=== PATIENT | male | born 1965 | race Caucasian/White ===

== ENCOUNTER 2016-10-24 06:47 | Day surgery (SDC) | payer BC ==
[2016-10-17 08:14] LABS: BASOPHILS 0.2 %; BASOPHILS ABSOLUTE 0.02 10/3/uL (0.0-0.16); EOSINOPHILS 4.3 %; EOSINOPHILS ABSOLUTE 0.41 10/3/uL (0.0-0.53); HEMATOCRIT 45.9 % (40.0-51.0); HEMOGLOBIN 15.9 g/dL (13.6-17.8); IMMATURE GRANULOCYTES 0.2 %; IMMATURE GRANULOCYTES ABSOLUTE 0.02 10/3/uL (0.0-0.11); LYMPHOCYTES 35.7 %; LYMPHOCYTES ABSOLUTE 3.37 10/3/uL (0.67-4.30); MEAN CORPUS HGB CONC 34.6 g/dL (32.0-36.0); MEAN CORPUSCULAR HEMOGLOB 33.1 pg (26.0-34.0); MEAN CORPUSCULAR VOLUME 95.4 fL (80-100); MEAN PLATELET VOLUME 10.2 fL (9.2-13.0); MONOCYTES 7.1 %; MONOCYTES ABSOLUTE 0.67 10/3/uL (0.21-1.20); NEUTROPHILS 52.5 %; NEUTROPHILS ABSOLUTE 4.94 10/3/uL (2.02-8.40); PLATELET COUNT 273 10/3/uL (150-400); RBC DISTRIBUTION WIDTH 13.2 % (12.0-16.0); RED CELL COUNT 4.81 10/6/uL (4.7-6.1); WHITE BLOOD CELLS 9.4 10/3/uL (4.5-10.5)
[2016-10-17 08:18] LABS: MANUAL DIFF NO %
[2016-10-17 08:22] LABS: PARTIAL THROMBO TIME 29.7 SEC (22.5-37.2)
[2016-10-17 08:30] LABS: BUN (BLOOD UREA NITROGEN) 18 MG/DL (6-23); CHLORIDE, SERUM 107 MMOL/L (96-112); CO2 (CARBON DIOXIDE) 27 MMOL/L (24-34); CREATININE 0.82 MG/DL (0.70-1.30); GFR AFRICAN AMERICAN 119 ML/MIN (>=60); GFR NON AFRICAN AMERICAN 102 ML/MIN (>=60); GLUCOSE, SERUM 116 MG/DL (60-99); POTASSIUM, SERUM 4.1 MMOL/L (3.5-5.3); SODIUM, SERUM 143 MMOL/L (135-148)
--- NOTE | ~2016-10-24 | OP ---
Record Of Operation [facility] [address] [place]. [address] NAME: LOUISA TRONCOSO : 65 STATUS : [facility]#: [id number] AGE: 51 ADM/REG DATE : 10/24/16 MR#: [id number] REPORT SERV DATE: 10/25/16 DICTATED BY: MELINDA MADERA DATE: 10/25/16 REPORT STATUS : Draft TRANSCRIBED BY: JUNOIR DATE: 10/25/16 DATE OF PROCEDURE: 10/24/2016 PREOPERATIVE DIAGNOSIS: Bilateral cholesteatoma. POSTOPERATIVE DIAGNOSIS: Bilateral cholesteatoma. OPERATIVE PROCEDURE PERFORMED: 1. Right tympanoplasty and mastoidectomy with ossicular chain reconstruction. 2. Right facial nerve monitoring. INDICATIONS AND SIGNIFICANT HISTORY: The patient is a 51-year-old male with a chronic middle ear problems. He presented to the office and was found to have a large bilateral cholesteatoma. Imaging was ordered and demonstrated significant disease. He was noted to have what appeared to be tegmen defects bilaterally, but has no known CSF otorrhea. He has very little useful hearing in his right ear and was felt to benefit from the right ear surgery first. OPERATIVE PROCEDURE AND FINDINGS: After an informed consent was obtained, the patient was brought to the operating room and placed on the operating table in a supine position, at which point, general endotracheal anesthesia was induced by Anesthesia Service and the right facial nerve monitor was set up to monitor orbicularis auris and orbicularis oculi muscles throughout the course of the case. Attention was turned toward the right ear, which was prepped and draped in a standard sterile fashion. I injected with approximately 4 mL of 2% lidocaine and 1:100,000 epinephrine. A lateral canal incision was made approximately 5 mm off the surface from the posterior rim of the bony anulus. This was made with a series of Holloway blades and then reverse elevated. Attention was then turned toward the postauricular region, where the postauricular incision was made along the natural skin crease and the pinna was reflected anteriorly. The temporalis muscle was identified and the fascia overlying the superficial temporal fascia was harvested, approximately a 3 x 2 cm segment. A second segment of fascia was also collected and dried. Attention was then turned toward the elevation of periosteum. A T-shaped incision was made at the inferior border of the temporalis muscle and the posterior limb in a vertical border and paralleling the skin incision was carried to the mastoid tip. A combination of periosteal elevators was utilized to elevate the canal skin and soft tissues anteriorly and then a piece of gauze was passed into the external auditory canal through the postauricular incision and used to hold the whole complex anteriorly. This was held in place with a Weitlaner retractor. This gave excellent exposure of the cribriform area of the spine of Henle, the external auditory canal, the posterior canal retraction pocket, and visible cholesteatoma. Initially, a cortical mastoidectomy was attempted with a canal wall up approach; however, the mastoid was very poorly aerated given his significant chronic mastoid disease and inside-out type approach was utilized. The anulus of the posterior edge of the tympanic membrane including the fibrous anulus was elevated from approximately the 2 o'clock position around to the 6 o'clock position posteriorly. The tympanomeatal flap was then elevated anteriorly and held into place with Gelfoam. The chorda tympani nerve was identified, however, was not preserved given the extent of cholesteatoma around this and the tympanic membrane was Record Of Operation [facility] [address] [place]. [address] NAME: LOUISA TRONCOSO : 65 STATUS : [facility]#: [id number] AGE: 51 ADM/REG DATE : 10/24/16 MR#: [id number] REPORT SERV DATE: 10/25/16 DICTATED BY: MELINDA MADERA DATE: 10/25/16 REPORT STATUS : Draft TRANSCRIBED BY: JUNIOR DATE: 10/25/16 elevated off the surface of the malleus as well during the course of dissection. A large attic retraction pocket was not probed initially given his tegmen defect. However, utilizing 3 mm, 4 mm, and 6 mm burs, as well as the 2 mm bur, all cutting burs, canal wall down mastoidectomy was performed with dissection of the aditus. The horizontal semicircular canal was noted to be intact; however, the ossicular chain was not intact. There was a heavy erosion of the incus, as well as a large portion of the stapes returned to this in just a moment. Cholesteatoma was dissected out from the mastoid, dissected out from the middle ear space, and out from the facial recess. I also dissected from the hypotympanum. Cholesteatoma was noted to extend densely into the round window niche and then was also present all around the stapes. Again, the stapes was eroded; however during the course of removal of cholesteatoma, the stapes footplate was avulsed and all suctioning was ceased immediately and temporalis fascial graft was trimmed to fit over the oval window. The bony stapes footplate was then replaced over this temporalis fascial graft. At this point, cholesteatoma had been dissected from the facial recess and then dissected from the hypotympanum from the tympanic cavity proper. His attic had been already dissected, but great care was turned toward the tegmen region. The eroded head of the incus was removed from the malleus by the joint connecting the two and the malleus was left in place. Cautious dissection was performed with a duckbill elevator and there was approximately a 12 x 5 mm defect in the attic of the tegmen. No visible CSF leak was present and an additional piece of temporalis fascia was placed over this to provide additional support. This provided adequate clearance of cholesteatoma and bolstering of tegmen defect, repair of avulsion of the stapes footplate from the oval window, and clearance of the middle ear. Next, attention was turned toward placement of the graft. The superficial temporalis fascial graft was placed lateral to the malleus and was placed lateral to the bony canal anulus up and over fairly high facial ridge, and a small mastoid cavity and then the tympanic membrane remnants were then replaced on top of this graft. Before the graft had been placed using trimmed or carved head of the incus placed between the stapes and malleus, interposition of graft had been performed. This was performed to improve ossicular continuity. The middle ear was partially bolstered with Floxin-soaked Gelfoam followed by placement of Floxin-soaked Gelfoam into the external auditory canal, replacement of lateral skin flap of the canal, and then finally closure of the postauricular wound. Mastoid dressing was applied. The patient was turned back toward anesthesia, aroused from anesthesia, and taken to the postanesthesia care unit in satisfactory condition. COMPLICATIONS: Avulsion of the stapes footplate from dissection of cholesteatoma with immediate repair using temporalis fascia and ossicular chain reconstruction. FINDINGS: Largely eroded ossicular chain tegmen defect approximately 12 x 5 mm, but no invasive cholesteatoma in this area and also extensive cholesteatoma in a poorly-pneumatized mastoid. Facial nerve was noted to be stimulable throughout the course of the case and was not eroded as it crossed superior to the oval window nor was it traumatically exposed in the vertical segment of the mastoid. DLA/MODL Record Of [address] [address] NAME: LOUISA TRONCOSO : 65 STATUS : [facility] PAT#: [id number] AGE: 51 ADM/REG DATE : 10/24/16 MR#: [id number] REPORT SERV DATE: 10/25/16 DICTATED BY: MELINDA MADERA DATE: 10/25/16 REPORT STATUS : Draft TRANSCRIBED BY: JUNIOR DATE: 10/25/16 Melinda Madera M.D. / [id number] CC: Kavita Howard II, M.D.
[~2016-10-24 06:47] MED LIST: ASAB PO; KLONO1 PO; LISINOPRIL40 MG PO; NEXIUM20 M1 PO; NORV5 PO; SEV VITAMINS PO; SINGULAIR1 PO; ULTRAM50 PO
== END 2016-10-24 19:15 | disposition home or self-care (01) ==
LOC: SDC 06:47
PROVIDERS: Otolaryngology
PROC: 0NB50ZZ Excision of Right Temporal Bone, Open Approach (ICD-10-PCS; 2016-10-24)
PROC: 09U Ear, Nose, Sinus, Supplement (ICD-10-PCS; 2016-10-24)
PROC: 09U507Z Supplement Right Middle Ear with Autologous Tissue Substitute, Open Approach (ICD-10-PCS; principal; 2016-10-24 08:45)
DX: H71.93 Unspecified cholesteatoma, bilateral (principal); I10 Essential (primary) hypertension; F41.9 Anxiety disorder, unspecified; J32.9 Chronic sinusitis, unspecified; M19.90 Unspecified osteoarthritis, unspecified site; K21.9 Gastro-esophageal reflux disease without esophagitis; Z90.49 Acquired absence of other specified parts of digestive tract; Z90.89 Acquired absence of other organs; Z79.899 Other long term (current) drug therapy; Z79.82 Long term (current) use of aspirin; Z98.890 Other specified postprocedural states
CPT/HCPCS: 80048; 85025; 85610; 85730; 88304; 88305; 93005; A9270-GY; J0690; J1170; J2250; J3010

== ENCOUNTER → 2017-01-13 17:37 | Emergency (ER) | payer BC ==
[2017-01-13 13:57] LABS: BASOPHILS 0.1 %; BASOPHILS ABSOLUTE 0.01 10/3/uL (0.0-0.16); EOSINOPHILS 2.3 %; EOSINOPHILS ABSOLUTE 0.23 10/3/uL (0.0-0.53); ER CBC TAT 0 Hrs 05 Mins; HEMATOCRIT 44.3 % (40.0-51.0); HEMOGLOBIN 15.3 g/dL (13.6-17.8); IMMATURE GRANULOCYTES 0.3 %; IMMATURE GRANULOCYTES ABSOLUTE 0.03 10/3/uL (0.0-0.11); LYMPHOCYTES 20.1 %; MEAN CORPUS HGB CONC 34.5 g/dL (32.0-36.0); MEAN CORPUSCULAR HEMOGLOB 32.5 pg (26.0-34.0); MEAN CORPUSCULAR VOLUME 94.1 fL (80-100); MEAN PLATELET VOLUME 9.7 fL (9.2-13.0); MONOCYTES 5.6 %; MONOCYTES ABSOLUTE 0.56 10/3/uL (0.21-1.20); NEUTROPHILS 71.6 %; NEUTROPHILS ABSOLUTE 7.14 10/3/uL (2.02-8.40); PLATELET COUNT 224 10/3/uL (150-400); RBC DISTRIBUTION WIDTH 12.9 % (12.0-16.0); RED CELL COUNT 4.71 10/6/uL (4.7-6.1)
[2017-01-13 13:59] LABS: MANUAL DIFF NO %
[2017-01-13 14:14] LABS: BUN (BLOOD UREA NITROGEN) 16 MG/DL (6-23); CALCIUM, SERUM 8.8 MG/DL (8.5-10.4); CHLORIDE, SERUM 103 MMOL/L (96-112); CO2 (CARBON DIOXIDE) 28 MMOL/L (24-34); CREATININE 0.89 MG/DL (0.70-1.30); GFR AFRICAN AMERICAN 115 ML/MIN (>=60); GFR NON AFRICAN AMERICAN 99 ML/MIN (>=60); GLUCOSE, SERUM 182 MG/DL (60-99); SODIUM, SERUM 138 MMOL/L (135-148)
[2017-01-13 14:18] LABS: CHEST PAIN PROFILE TAT 0 Hrs 25 Mins; TROPONIN I <0.02 NG/ML (<0.05)
== END | disposition left against medical advice (07) ==
LOC: ER 17:37
PROVIDERS: Emergency Medicine
DX: R07.9 Chest pain, unspecified (principal); Z53.21 Procedure and treatment not carried out due to patient leaving prior to being seen by health care provider
CPT/HCPCS: 71020; 80048; 83735; 84484; 85025; 85610; 85730; 93005